=== PATIENT | female | born 1995 | race Hispanic/Latino ===

== ENCOUNTER 2020-09-21 10:13 | Day surgery (SDC) | payer BC, SELFPAY ==
[~2020-09-21 10:13] MED LIST: cefOXitin Sodium/Dextrose 2 GM/50 ML BAG ONE
[2020-09-21] MEDS ORDERED: Fentanyl 100 MCG/2 ML VIAL ONE ×2 (11:58→12:10)
[2020-09-21] MEDS ORDERED: EPINEPHrine 1 MG/ML AMP ONE (12:06)
[2020-09-21] MEDS ORDERED: Bupivacaine 0.25% HCL 30 ML VIAL ONE (12:06)
[2020-09-21] MEDS ORDERED: Dexmedetomidine 200 MCG/2 ML VIAL ONE (12:10)
[2020-09-21] MEDS ORDERED: Lidocaine 1% PF 5 ML VIAL ONE (12:23)
[2020-09-21] MEDS ORDERED: Glycopyrrolate 0.2 MG/ML 5 ML SYRINGE ONE (12:23)
[2020-09-21] MEDS ORDERED: Rocuronium Bromide 10 MG/ML (10ML VIAL) ONE (12:23)
[2020-09-21] MEDS ORDERED: Ondansetron PF 4 MG/2 ML Vial ONE (12:23)
[2020-09-21] MEDS ORDERED: Ketorolac Tromethamine 30 MG/ML VIAL ONE (12:23)
[2020-09-21] MEDS ORDERED: Dexamethasone 20 MG/5 ML VIAL ONE (12:23)
[2020-09-21] MEDS ORDERED: ePHEDrine 50 MG/ML VIAL ONE (12:23)
[2020-09-21] MEDS ORDERED: PROPOFOL 200 MG/20 ML VIAL ONE (12:23)
[2020-09-21] MEDS ORDERED: HYDROmorphone 0.5 MG/0.5 ML SYRINGE ONE (12:38)
== END 2020-09-21 14:46 | disposition home or self-care (01) ==
LOC: SDC 10:13
PROVIDERS: ATTEND Surgery
PROC: 0DTJ4ZZ Resection of Appendix, Percutaneous Endoscopic Approach (ICD-10-PCS; principal; 2020-09-21)
DX: K35.80 Unspecified acute appendicitis (principal); K38.1 Appendicular concretions
CPT/HCPCS: 88304; J0171; J0694; J1100; J1170; J1885; J2405; J2704; J3010; J3490; S0020